=== PATIENT | male | born 1970 | race Caucasian/White ===

== ENCOUNTER → 2016-09-05 | Day surgery (SDC) | payer OTHER ==
[2016-08-19 08:06] VITALS: BMI 34.0
[~2016-09-05] VITALS: Ht 177.8 cm; Wt 81.8 kg
[~2016-09-05] MED LIST: ALUMSUS21 PO; ASPI-391 PO; ATOR-22 PO; BENZ100C84 PO; COALSHA EXT; DOCU100C31 PO; FIBER PO; IBUP600T44 PO; LIDOCAINE HCL 2% 2 ML VIAL (20MG/ML) ONE; MIDAZOLAM HCL 1 MG/ML 2ML VIAL ONE; PROPOFOL IV EMULSION 10 MG/ML 20 ML VIAL IV ONE; PRT/20 PO; SODIUM CHLORIDE 0.9% 500ML 500 ML IV ONE
--- NOTE | 2016-09-05 15:37 | Endo History and Physical ---
History & Physical Date of Service: Sep 05, 2016. Chief Complaint: Dyspepsia Referring Physician: Dr. Spivey History of Present Illness 46 yo CM who presents for EGD secondary to dyspepsia. Past Medical History High Cholesterol, Depression Past Surgical History Hx Cardiac Surgery: No Hx Internal Defibrillator: No Hx Pacemaker: No Hx Abdominal Surgery: No Hx of Implantable Prosthesis: No Hx Cancer Surgery: No Hx Thoracic Surgery: No Hx Orthopedic: Yes (ANTERIOR CERVICAL DISCECTOMY/FUSION C5-C7 (01/2012)) Hx Urinary Tract Surgery: No Social History Smoking Status: Former Smoker Hx Substance Use: No Hx Alcohol Use: No Allergies Coded Allergies: Corticosteroids (Verified Allergy, Unknown, UNKNOWN, 09/05/16) Ketorolac Tromethamine (Verified Allergy, Unknown, UNK, 09/05/16) Prednisone (Verified Allergy, Unknown, ., 09/05/16) Current Medications Reported Home Medications Medications Dose Route/Sig Max Daily Dose Days Date Category Dose Instructions Therapeutic Shampoo ([place] Tar Extract) 0.5 % Sha 1 Dose EXT [id number] 08/19/16 Reported Protonix (Pantoprazole Sodium) 20 Mg Tab 20 Mg PO BID 08/19/16 Reported Excedrin Extra Strength (Pyxxinm-Nujyukhacfqqr-Qcsqfegn) 1 Tab Tab 1-2 Tab PO BID PRN 08/19/16 Reported Motrin (Ibuprofen) 600 Mg Tab 600 Mg PO BID 08/19/16 Reported PRN Fiber Laxative (Fiber) Ea 625 Mg PO BID 08/19/16 Reported Docusate Sodium 100 Mg Cap 1 Cap PO BID 7 08/19/16 Reported Tessalon Perles (Benzonatate) 100 Mg Cap 100 Mg PO QAM 08/19/16 Reported Lipitor (Atorvastatin Calcium) 20 Mg Tab 20 Mg PO QPM 08/19/16 Reported Gaviscon (Aluminum Hydroxide-Mag Carb) 1 Mervat Mervat 15 Ml PO QAM 08/19/16 Reported Vital Signs Weight (Kilograms): 109.09 Height (Feet): 5 Height (Inches): 10 Date Time Temp Pulse Resp B/P Pulse Ox O2 Delivery O2 Flow Rate FiO2 09/05/16 15:27 36.6 97 16 116/71 100 Room Air 0 Physical Exam General Appearance: WD/WN, no apparent distress Respiratory/Chest: Auscultation: breath sounds normal Cardiovascular: Heart Auscultation: RRR Abdomen: Bowel Sounds: normal Inspection & Palpation: soft, non-distended, no tenderness, guarding & rebound Assessment and Plan Assessment: 46 yo CM who presents for EGD secondary to dyspepsia. Plan: Proceed with EGD
[2016-09-05 15:44] VITALS: Ht 177.8 cm; Wt 81.8 kg
--- NOTE | 2016-09-05 16:20 | Discharge Instructions ---
Endoscopy Patient Instructions Date / Procedure(s) Performed Sep 05, 2016. EGD Allergy Information Coded Allergies: Corticosteroids (Verified Allergy, Unknown, UNKNOWN, 09/05/16) Ketorolac Tromethamine (Verified Allergy, Unknown, UNK, 09/05/16) Prednisone (Verified Allergy, Unknown, ., 09/05/16) Discharge Date / Findings Sep 05, 2016. Gastritis s/p biopsies Hiatal hernia Reflux esophagitis Provider Instructions Activity Restrictions - No exercising or heavy lifting for 24 hours. - Do not drink alcohol the day of the procedure. - Do not drive a car or operate machinery until the day after the procedure. - Do not make any important decisions or sign important papers in 24 hours after the procedure. Following Day: - Return to full activity which may include returning to work/school. Diet Start your diet with liquids and light foods (jello, soup, juice, toast). Then eat your usual diet if not nauseated. Treatment For Common After Affects For mild abdominal pain, bloating, or excessive gas: - Rest - Eat lightly - Lie on right side Follow-Up Information Follow-up with Dr. Elise Spivey as scheduled Anesthesia Information What You Should Know You have had a procedure that required some medicine to reduce anxiety and discomfort. This treatment is called moderate sedation. After receiving the treatment, you may be sleepy, but you will be able to breathe on your own. The effects of the treatment may last for several hours. Follow these instructions along with Activity/Diet recommendations noted above: * Do NOT do anything where dizziness or clumsiness would be dangerous. * Rest quietly at home today, then you can be up and about tomorrow. * Have a responsible person stay with you the rest of today. * You may have had an I.V. today. If so, you may take the dressing off later today. Recommendations Call your doctor if: * Trouble breathing * Continuous vomiting for more than 24 hours * Temperature above 101 degrees * Severe abdominal pain or bloating * Pain not relieved by pain medicine ordered * There is increased drainage or redness from any incision * A large amount of rectal bleeding greater than 2-3 tablespoons. (If you had a polyp/s removed or have hemorrhoids, a small amount of blood - from the rectum is to be expected.) * You have any unanswered questions or concerns. IN THE EVENT OF A SERIOUS EMERGENCY, GO TO THE NEAREST EMERGENCY ROOM Your discharge instructions were prepared by provider Jonah Freeman. Patient Instructions Signature Page Jeff Jacob Patient (or Guardian) Signature/Date: I have read and understand the instructions given to me by my caregivers. Caregiver/RN/Doctor Signature/Date: The above-named patient and/or guardian has received patient instructions on this date. + Original Patient Signature Page (only) stays with chart. Please make copy for patient.
--- NOTE | 2016-09-05 16:26 | GI REPORT ---
Procedure Date: 09/05/2016 3:49 PM Procedure: Upper GI endoscopy Indications: Dyspepsia Medicines: Monitored Anesthesia Care Complications: No immediate complications. Estimated Blood Loss: Estimated blood loss: none. Procedure: Pre-Anesthesia Assessment: - Prior to the procedure, a History and Physical was performed, and patient medications and allergies were reviewed. The patient's tolerance of previous anesthesia was also reviewed. The risks and benefits of the procedure and the sedation options and risks were discussed with the patient. All questions were answered, and informed consent was obtained. Prior Anticoagulants: The patient has taken previous NSAID medication, last dose was 1 day prior to procedure. ASA Grade Assessment: III - A patient with severe systemic disease. After reviewing the risks and benefits, the patient was deemed in satisfactory condition to undergo the procedure. After obtaining informed consent, the endoscope was passed under direct vision. Throughout the procedure, the patient's blood pressure, pulse, and oxygen saturations were monitored continuously. The scope was introduced through the mouth, and advanced to the second part of duodenum. The upper GI endoscopy was accomplished without difficulty. The patient tolerated the procedure well. Findings: LA Grade B (one or more mucosal breaks greater than 5 mm, not extending between the tops of two mucosal folds) esophagitis with no bleeding was found. A medium-sized hiatus hernia was present. Localized moderate inflammation characterized by erythema was found in the gastric antrum. Biopsies were taken with a cold forceps for histology. The examined duodenum was normal. Impression: - LA Grade B reflux esophagitis. - Medium-sized hiatus hernia. - Gastritis. Biopsied. - Normal examined duodenum. Recommendation: - Resume previous diet. - Use Protonix (pantoprazole) 40 mg PO BID. - Return to primary care physician as previously scheduled. Jonah Freeman DO 09/05/2016 4:25:54 PM This report has been signed electronically. Note Initiated On: 09/05/2016 3:49 PM
[2016-09-05 16:36] VITALS: BP 115/69; PULSE 73; O2SAT 95
--- NOTE | 2016-09-05 16:51 | Anesthesiology Progress Note ---
Anesthesia Post Op Note Date & Time Sep 05, 2016 at 16:50 Vital Signs Pain Intensity: 0 Vital Signs Past 12 Hours Date Time Temp Pulse Resp B/P Pulse Ox O2 Delivery O2 Flow Rate FiO2 09/05/16 16:36 73 16 115/69 95 Room Air 09/05/16 16:17 61 16 94/51 97 Room Air 09/05/16 16:02 72 16 92/55 96 Nasal Cannula 2 09/05/16 15:27 36.6 97 16 116/71 100 Room Air 0 Notes Mental Status: alert / awake / arousable, participated in evaluation Pt Amnestic to Procedure: Yes Nausea / Vomiting: adequately controlled Pain: adequately controlled Airway Patency, RR, SpO2: stable & adequate BP & HR: stable & adequate Hydration State: stable & adequate Anesthetic Complications: no major complications apparent
== END ==
LOC: C.GI 15:15
PROVIDERS: ATTEND Internal Medicine
DX: K21.0 Gastro-esophageal reflux disease with esophagitis (principal); K44.9 Diaphragmatic hernia without obstruction or gangrene; K29.50 Unspecified chronic gastritis without bleeding; I25.2 Old myocardial infarction; E78.00 Pure hypercholesterolemia, unspecified; Z87.891 Personal history of nicotine dependence; Z98.890 Other specified postprocedural states; Z86.19 Personal history of other infectious and parasitic diseases